=== PATIENT | male | born 1965 | race Caucasian/White ===

== ENCOUNTER 2020-06-10 22:34 | Emergency (ER) | payer BC, OTHER ==
[2020-06-10] MEDS ORDERED: Famotidine In NaCl 20 mg/50 ml Premix Bag ONE (23:03)
[2020-06-10] MEDS ORDERED: Ondansetron PF 4 MG/2 ML Vial ONE (23:03)
[2020-06-10] MEDS ORDERED: Ketorolac Tromethamine 30 MG/ML VIAL ONE (23:03)
[2020-06-10] MEDS ORDERED: Fentanyl 100 MCG/2 ML VIAL ONE (23:03)
[2020-06-10] MEDS ORDERED: Glycopyrrolate 0.4 MG/ 2 ML VIAL ONE (23:03)
[2020-06-10 23:12] LABS: #Basophils 0.1 thou/uL (0.0-0.2); #Eosinphils 0.2 thou/uL (0.0-0.7); Hemoglobin 16.2 g/dL (14.0-18.0)
[2020-06-10 23:17] LABS: #Lymphocytes 2.2 thou/uL (1.20-3.40); #Monocytes 0.7 thou/uL (0.11-0.59); #Neutrophils 6.3 thou/uL (1.40-6.50); %Basophils 0.8 % (0.0-1.0); %Eosinophils 2.4 % (0.0-10.0); %Lymphocytes 23.3 % (21.0-51.0); %Neutrophils 66.6 % (42.0-75.0); Mean Corpuscular HGB CONC 33.1 g/dL (32.0-36.0); Mean Corpuscular Volume 93.7 fL (78.0-98.0); Mean Platelet Volume 7.7 fL (7.4-10.4); Platelet Count 204 thou/uL (130-400); RBC Distribution Width 11.6 % (11.5-14.5); Red Blood Cell (RBC) Count 5.22 mill/uL (4.70-6.10); White Blood Cell (WBC) Count 9.4 thou/uL (4.8-10.8)
[2020-06-10 23:27] LABS: ALT (SGPT) 21 U/L (8-55); AST (SGOT) 13 U/L (5-34); Albumin 4.2 g/dL (3.5-5.0); Alkaline Phosphatase 45 U/L (40-110); Anion Gap 15 mmol/L (10-20); BUN (Urea Nitrogen) 11 mg/dL (8.4-25.7); Bilirubin, Total 0.5 mg/dL (0.2-1.2); Calc. Creatinine Clearance 0 mL/min (70-130); Calcium 9.5 mg/dL (7.8-10.44); Carbon Dioxide 25 mmol/L (22-29); Chloride 104 mmol/L (98-107); Globulin 3.5 g/dL (2.4-3.5); Glucose 246 mg/dL (70-105); Lipase 35 U/L (8-78); Protein, Total 7.7 g/dL (6.0-8.3); Sodium 140 mmol/L (136-145)
[2020-06-10] MEDS ORDERED: Dicyclomine 20 MG TAB ONE (23:47)
== END 2020-06-10 23:59 | disposition home or self-care (01) ==
LOC: BURERS 22:34
DX: K80.50 Calculus of bile duct without cholangitis or cholecystitis without obstruction (principal); F17.220 Nicotine dependence, chewing tobacco, uncomplicated
CPT/HCPCS: 80053; 83690; 85025; 96365; 96375; J1885; J2405; J3010

== ENCOUNTER 2020-06-11 09:10 | Emergency (ER) | payer BC ==
[2020-06-11] MEDS ORDERED: HYDROmorphone 0.5 MG/0.5 ML SYRINGE ONE (09:29)
[2020-06-11] MEDS ORDERED: Ondansetron PF 4 MG/2 ML Vial ONE (09:40)
[2020-06-11 09:57] LABS: ALT (SGPT) 22 U/L (8-55); AST (SGOT) 16 U/L (5-34); Albumin 4.2 g/dL (3.5-5.0); Alkaline Phosphatase 46 U/L (40-110); Anion Gap 18 mmol/L (10-20); BUN (Urea Nitrogen) 14 mg/dL (8.4-25.7); Bilirubin, Total 0.7 mg/dL (0.2-1.2); Calc. Creatinine Clearance 0 mL/min (70-130); Calcium 9.3 mg/dL (7.8-10.44); Carbon Dioxide 19 mmol/L (22-29); Chloride 103 mmol/L (98-107); Globulin 3.7 g/dL (2.4-3.5); Glucose 226 mg/dL (70-105); Lipase 23 U/L (8-78); Potassium 4.3 mmol/L (3.5-5.1); Protein, Total 7.9 g/dL (6.0-8.3); Sodium 136 mmol/L (136-145)
[2020-06-11 10:03] LABS: Band 5 % (5-11); Hemoglobin 16.5 g/dL (14.0-18.0); Lymphocytes 10 % (21-51); MDiff Complete? YES; Mean Corpuscular Hemoglobin 31.2 pg (27.0-31.0); Mean Corpuscular Volume 94.3 fL (78.0-98.0); Mean Platelet Volume 7.8 fL (7.4-10.4); Monocytes 5 % (0-10); Neutrophil 80 % (42-75); Platelet Count 207 thou/uL (130-400); RBC Distribution Width 11.6 % (11.5-14.5); Red Blood Cell (RBC) Count 5.31 mill/uL (4.70-6.10); White Blood Cell (WBC) Count 10.8 thou/uL (4.8-10.8)
[2020-06-11 12:03] LABS: Lactic Acid 2.1 mmol/L (0.5-2.2)
[2020-06-11] MEDS ORDERED: HYDROcodone/Acetaminophen 5/325 mg Tablet ONE (12:48)
--- NOTE | 2020-06-11 17:44 | CT ---
CT ABDOMEN AND PELVIS WITH CONTRAST: 06/11/20 The stomach has quite a bit of fluid in it and it is mildly distended. The patient's small bowel has a large amount of fluid in it but is not very distended, the largest loops measuring 2.6 cm in diamet er. The patient's right colon, transverse colon, and descending colon down to about its juncture with the sigmoid colon is also quite fluid-filled but not tremendously dilated. At no point is there any real transition in size of bowel. Thus, the findings are mainly diffuse fluid filled loops of large a nd small bowel, as well as the stomach. Gastroenteritis is favored as the most likely diagnosis. If t he patient were to worsen, follow-up scans might be needed. The appendix was identified and it appea rs normal. None of the bowel wall seems exceptionally thick and there is no inflammatory change aroun d bowel. The lung bases are clear. The liver, spleen, pancreas, adrenal glands, gallbladder, and abdominal aor ta showed no acute findings. There is a rim calcified area seen within the pancreas on one of the sli rand that is 1.1 cm in size. 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 The kidneys h ave some parapelvic cysts bilaterally. Neither kidney shows any stones today or thai obstruction. Th e left renal pelvis is somewhat prominent in size, but the ureters are not dilated. This is probably this patient's baseline. CT of the pelvis shows no pelvic masses, fluid collections, or inflammatory changes. The prostate is mildly generous in size. The rectosigmoid colon was unremarkable in its appearance. Degenerative patterson ges are fairly prominent in the patient's spine and SI joints. IMPRESSION: Prominently fluid-filled loops of stomach, small bowel and large bowel without large amounts of dilat ion. Gastroenteritis is the primary consideration. Consider follow-up studies if the patient's sympt oms worsen. Preliminary report called to Dr. Morgan at 1024 on 06/11/20. POS: HOME
== END 2020-06-11 12:55 | disposition home or self-care (01) ==
LOC: BURERS 09:10
DX: K52.9 Noninfective gastroenteritis and colitis, unspecified (principal); F17.220 Nicotine dependence, chewing tobacco, uncomplicated
CPT/HCPCS: 36415; 74177; 80053; 83605; 83690; 85025; 96374; 96375; J1170; J2405

== ENCOUNTER 2020-10-31 20:33 | Emergency (ER) | payer BC ==
[2020-10-31] MEDS ORDERED: Boostrix 0.5 ML (Tdap) VIAL ONE (21:05)
== END 2020-10-31 21:15 | disposition home or self-care (01) ==
LOC: BURERS 20:33
DX: S61.211A Laceration without foreign body of left index finger without damage to nail, initial encounter (principal); Z23 Encounter for immunization; I10 Essential (primary) hypertension; E11.9 Type 2 diabetes mellitus without complications; F17.220 Nicotine dependence, chewing tobacco, uncomplicated; W45.8XXA Other foreign body or object entering through skin, initial encounter
CPT/HCPCS: 12002; 90471; 90715

== ENCOUNTER 2020-12-30 07:33 | Emergency (ER) | payer BC ==
[2020-12-30 08:11] LABS: #Basophils 0.1 thou/uL (0.0-0.2); #Eosinphils 0.2 thou/uL (0.0-0.7); #Lymphocytes 2.2 thou/uL (1.20-3.40); #Monocytes 0.9 thou/uL (0.11-0.59); #Neutrophils 5.6 thou/uL (1.40-6.50); %Basophils 1.2 % (0.0-1.0); %Eosinophils 2.4 % (0.0-10.0); %Neutrophils 62.4 % (42.0-75.0); Hemoglobin 12.8 g/dL (14.0-18.0); Mean Corpuscular HGB CONC 33.6 g/dL (32.0-36.0); Mean Corpuscular Hemoglobin 31.3 pg (27.0-31.0); Mean Corpuscular Volume 93.1 fL (78.0-98.0); Mean Platelet Volume 6.6 fL (7.4-10.4); Platelet Count 352 thou/uL (130-400); RBC Distribution Width 11.2 % (11.5-14.5)
[2020-12-30 08:27] LABS: ALT (SGPT) 51 U/L (8-55); AST (SGOT) 22 U/L (5-34); Albumin 4.3 g/dL (3.5-5.0); Alkaline Phosphatase 62 U/L (40-110); Anion Gap 19 mmol/L (10-20); BUN (Urea Nitrogen) 13 mg/dL (8.4-25.7); Bilirubin, Total 1.2 mg/dL (0.2-1.2); Calc. Creatinine Clearance 0 mL/min (70-130); Calcium 9.8 mg/dL (7.8-10.44); Carbon Dioxide 22 mmol/L (22-29); Chloride 99 mmol/L (98-107); Globulin 3.7 g/dL (2.4-3.5); Glucose 177 mg/dL (70-105); Lipase 35 U/L (8-78); Potassium 4.4 mmol/L (3.5-5.1); Sodium 136 mmol/L (136-145)
== END 2020-12-30 08:56 | disposition home or self-care (01) ==
LOC: BURERS 07:33
DX: R10.13 Epigastric pain (principal); E11.9 Type 2 diabetes mellitus without complications; I10 Essential (primary) hypertension; F17.220 Nicotine dependence, chewing tobacco, uncomplicated; F17.290 Nicotine dependence, other tobacco product, uncomplicated; Z79.899 Other long term (current) drug therapy; Z79.84 Long term (current) use of oral hypoglycemic drugs; Z79.82 Long term (current) use of aspirin
CPT/HCPCS: 36415; 74176; 80053; 83690; 85025